=== PATIENT | female | born 1985 | race Caucasian/White ===

== ENCOUNTER 2024-12-23 21:26 | Emergency (ER) | payer BC, SELFPAY ==
[2024-12-23 21:27] VITALS: BMI 26.5
[2024-12-23 21:30] VITALS: BP 125/84
[2024-12-23 23:00] VITALS: BP 124/74
--- NOTE | 2024-12-24 01:26 | ED.GENMED ---
History of Present Illness
General
Chief Complaint: Anal/Rectal Problem
Source: patient
Exam Limitations: none
Time Seen by Provider: 12/24/24 01:26
Nursing documentation reviewed up to this point in time: agreed with
History of Present Illness
History of Present Illness:
39-year-old female with past medical history of GERD who is 34 weeks presents emergency department today with concerns of painful external hemorrhoid. Patient reports that she noticed she had a hemorrhoid a few days ago but then
approximately 2 days ago, the hemorrhoid became very painful. Patient reports that it is painful to sit and any movement makes the pain worse. She did see her [facility] [facility] who started her on a steroid cream which she has been applying without relief.
Patient is also taking hot baths and has been taking Tylenol with minimal improvement. She denies any rectal bleeding, abdominal pain, nausea and vomiting, fevers or chills.
Past History
Past History
ED Past Medical History: None
ED Past Surgical History: None
Social History
Tobacco: Non-smoker
Alcohol: None
Drug: None
Personal:
Living: with family
Review of Systems
Review of Systems
All Other Systems: ROS reviewed and negative except as documented in HPI and ROS
Phy Exam
Physical Exam
Physical Exam:
General: Patient is well appearing and in no acute distress; non-toxic
Skin: Warm and dry, no rashes or lesions
Head: Normocephalic, atraumatic
Eyes: Sclera non-icteric. EOMs intact.
Cardiac: Regular rate
Pulm: Normal respiratory effort
Abdomen: Gravid uterus
Genitourinary: External hemorrhoid noted, tender to palpation, no bleeding from the rectum
Neuro: CN II-XII intact, no focal neurologic deficits.
Psychiatric: Appropriate mood and affect.
Course
Orders/Labs/Results
Orders:
Orders
12/24/24 01:40
Famotidine [Pepcid] 20 mg PO NOW STA
12/24/24 08:00
Dibucaine [Nupercainal 1% Ointment] See Dose Instructions TOPICAL TID ONE
Vital Signs
Initial and Last Documented VS:
Initial Vital Signs
Temp Pulse Resp BP Pulse Ox
98.1 F 102 18 125/84 100
12/23/24 21:30 12/23/24 21:30 12/23/24 21:30 12/23/24 21:30 12/23/24 21:30
Last Documented Vital Signs
Temp Pulse Resp BP Pulse Ox
98.1 F 87 16 95/62 100
12/23/24 21:30 12/24/24 03:38 12/24/24 03:38 12/24/24 03:38 12/24/24 03:38
MDM/Problems Addressed
Differential Diagnosis Includes:
ddx include external hemorrhoid, internal hemorrhoid, thrombosed hemorrhoid
MDM/Problems Addressed:
39-year-old female with past medical history of GERD who is 34 weeks presents emergency department today with concerns of painful external hemorrhoid. She has been doing Tylenol and steroid cream without relief. I did order dibucaine for
her in the ER and applied with some relief, will send patient home with this tube. Discussed home use of sitz bath, doughnut, stool softener regimen, and high fiber diet. Follow up information provided for colorectal surgery
*Pulse Oximetry
Patient hypoxic: no
*Critical Care Note
Total Time (30-74mins, 75-104mins- exclusive of procedures): Not Applicable
Data Reviewed
Review of Other/Old Records Reveals: Records (28 reviewed ER physician documentation from 11/21/2021 patient seen for abdominal pain discharge)
Update Note
Update Note:
2:25 pm-- update, medication still has not arrived from pharmacy, attempting to call pharmacy
ED Attending Note
-
Portions of this chart may have been created with voice recognition software.� Occasional wrong word or��sound alike� substitutions may have occurred due to the inherent limitations of voice recognition software.
Discharge Plan
Departure
Patient Disposition: Home (Routine Discharge)
Date of Disposition: 12/24/24
Time of Disposition: 03:07
Patient with high blood pressure during this ER visit?: Yes
Condition: Good
Discharge Problem:
External hemorrhoid
Instructions: How to take a sitz bath, BLOOD PRESSURE
Prescriptions:
No Action
Multivitamin
1 tab PO DAILY
ondansetron 4 MG tablet,disintegrating
4 mg PO TIDPRN PRN (Reason: nausea/vomiting) Qty: 11 0RF
Referrals:
Romie Restrepo DO [Family Provider] -
Henri Jung MD [Active] - Call in 1-3 days for appt
Oliva Camp DO [Active] - Call in 1-3 days for appt
Activity Restrictions/Additional Instructions:
You can apply the dibucaine as needed 4 times daily. Please continue the topical steroid as well.
Please start a stool regimen for the next few days. You can take taking Miralax or you can start taking colace one tablet once daily, which can be purchased over the counter. You can continue to take Tylenol as well.
Please do sitz baths at home. You can also purchase a donut at [facility] to help with pain with sitting.
Please call the attached number for Dr. Jung's office, colorectal surgery.
Please follow up with your OBGYN.
Interventions
Interventions:
*Risk Screen - Suicide Last Done: 12/23/24 21:30
*General Assessment Last Done: 12/23/24 21:30
*Neglect/Abuse Screening Last Done: 12/23/24 21:30
*ED- Fall Risk Assessment Last Done: 12/24/24 00:57
*ED COVID-19 Vaccine History Last Done: 12/23/24 21:29
*Nursing Disposition Last Done: 12/24/24 03:38
DO-Varaek-Lygpqupwig Assessment Last Done: 12/24/24 02:00
ED-Skin Assessment Last Done: 12/24/24 00:56
Discharge Date and Time
Discharge Date/Time: 12/24/24 03:41
Print Language: MALTESE
[2024-12-24] MEDS: PEPCID 20 MG PO (01:59)
[2024-12-24] MEDS: NUPERCAINAL 1% OINTMENT 1 APPLIC TOPICAL (03:05)
[2024-12-24 03:09] VITALS: BP 95/62
[2024-12-24 03:38] VITALS: BP 95/62
== END 2024-12-24 03:41 | disposition home or self-care (01) ==
LOC: EMR 21:26
PROVIDERS: EMERGENCY PHYSICIAN Student in an Organized Health Care Education/Training Program; FAMILY PHYSICIAN Family Medicine
DX: O22.43 Hemorrhoids in pregnancy, third trimester (principal); Z3A.34 34 weeks gestation of pregnancy; Z87.19 Personal history of other diseases of the digestive system
CPT/HCPCS: 99282